=== PATIENT | male | born 1970 | race Two or more races ===

== ENCOUNTER 2021-08-07 09:37 | Emergency (ER) | payer OTHER ==
[~2021-08-07] VITALS: Ht 182.9 cm; Wt 164.7 kg
[2021-08-07 12:04] LABS: Hematocrit 42.6 % (41.0-53.0); Hemoglobin 14.7 g/dL (13.5-17.5); Mean Corpuscular Hemoglobin 33.3 pg (28.0-32.0); Mean Corpuscular Hgb Conc. 34.5 g/dL (32.0-36.0); Mean Corpuscular Volume 96.7 fL (80.0-100.0); Red Cell Distribution Width 14.5 % (11.8-14.3); White Blood Cell 27.2 10^3/uL (4.4-10.8)
[2021-08-07 12:10] LABS: Basophils % (manual) 0 (0.0-2.0); Blast Cells 0; Eosinophils % (manual) 0 (0-7); Metamyelocytes % 0; Myelocytes % 0; Promyelocytes % 0; Reactive Lymphocytes 0
[2021-08-07 12:23] LABS: Alcohol, Urine < 3.0 mg/dL (0-10); Amphetamine Screen, Urine NEGATIVE (NEGATIVE); Barbiturate Scree,Urine NEGATIVE (NEGATIVE); Benzodiazephine Screen, Urine NEGATIVE (NEGATIVE); Cannabinoid Screen, Urine NEGATIVE (NEGATIVE); Cocaine Screen, Urine NEGATIVE (NEGATIVE); Opiate Scree,Urine NEGATIVE (NEGATIVE); Phencyclidine Screen, Urine NEGATIVE (NEGATIVE)
[2021-08-07 12:30] LABS: Albumin 2.7 g/dL (3.4-5.0); BUN/Creatinine Ratio 14.7; Calcium 9.2 mg/dL (8.5-10.1); Potassium 3.4 mmol/L (3.5-5.1)
[2021-08-07 12:32] LABS: Urine Bacteria NONE SEEN /hpf (None Seen); Urine Blood Negative /uL (Negative); Urine Specific Gravity 1.017 (1.001-1.035); Urine WBC 1 /hpf (0 - 3)
[2021-08-07 12:45] LABS: Bilirubin, Total 1.2 mg/dL (0.2-1.0); Total Protein 7.7 g/dL (6.4-8.2)
[2021-08-07 14:17] LABS: Band Neutrophils % (manual) 3; Lymphocytes % (manual) 6 (10.0-50.0); Monocytes % (manual) 2 (0-12)
[2021-08-07 14:39] VITALS: BP 105/54
== END 2021-08-07 14:39 | disposition home or self-care (01) ==
LOC: ER 09:37
DX: D72.829 Elevated white blood cell count, unspecified (principal); I10 Essential (primary) hypertension; Z90.89 Acquired absence of other organs; Z88.0 Allergy status to penicillin
CPT/HCPCS: 36415; 80053; 80307; 80320; 81001; 85007; 85027

== ENCOUNTER 2023-07-09 08:56 | Emergency (ER) | payer BC, OTHER ==
[~2023-07-09] VITALS: Ht 182.9 cm; Wt 121.7 kg
[~2023-07-09 08:56] MED LIST: ALBU0.084 NEB; FLUT250M2 IN; FURO40TA4 PO; METF-370 PO; PANT40TA2 PO; POTA-228 PO; SIMV10TA20 PO; SUCR1TAB22 OR
[2023-07-09 10:01] VITALS: BP 130/77; PULSE 106; RESP 20; TEMP 97.8; O2SAT 99
[2023-07-09] MEDS ORDERED: CEPH500C PO (11:01)
== END 2023-07-09 11:16 | disposition home or self-care (01) ==
LOC: ER 08:56
DX: S01.531A Puncture wound without foreign body of lip, initial encounter (principal); S80.01XA Contusion of right knee, initial encounter; M17.11 Unilateral primary osteoarthritis, right knee; I10 Essential (primary) hypertension; F10.90 Alcohol use, unspecified, uncomplicated; Z88.8 Allergy status to other drugs, medicaments and biological substances; Z79.899 Other long term (current) drug therapy; Z98.890 Other specified postprocedural states; W01.198A Fall on same level from slipping, tripping and stumbling with subsequent striking against other object, initial encounter; Y93.01 Activity, walking, marching and hiking; Y92.098 Other place in other non-institutional residence as the place of occurrence of the external cause; Y99.8 Other external cause status; Y90.0 Blood alcohol level of less than 20 mg/100 ml
CPT/HCPCS: 73562